=== PATIENT | male | born 1960 | race Caucasian/White ===

== ENCOUNTER 2020-06-29 10:12 | Inpatient (IN) | payer MEDICARE ==
[2020-06-29] VITALS (10 sets, daily range): BP systolic 82–122; BP diastolic 52–68
[~2020-06-29] VITALS: Ht 177.8 cm; Wt 90.0 kg
[~2020-06-29 10:12] MED LIST: BACTRIM DS1 TAB PO; DECADRON4 MG OR; LEXAPRO10 MG PO; LOVASTATIN40 MG PO; NEXIUM40 M1 PO; OXYCODONE HCL15 MG PO; PEPCID20 MG OR; ROXICODONE30 MG OR; TRICOR145 MG PO; TYLENOL # 31 TAB PO; VASERETIC1 TAB PO; XANAX0.25 MG OR; ZOLPIDEM10 M1 PO
--- NOTE | 2020-06-29 10:13 | NUR ---
PATIENT TO ROOM VIA WHEELCHAIR AND PHYSICIAN NOTIFIED OF PATIENT STATUS
[2020-06-29 10:48] LABS: HEMATOCRIT 41.8 % (39.0-50.0); HEMOGLOBIN 14.5 g/dl (14.0-18.0); MEAN CELL VOLUME 85.3 fL CALC (80.0-100.0); MEAN CORPUSCULAR HGB 29.6 pG CALC (26.0-32.0); MEAN CORPUSCULAR HGB CONC 34.7 g/dL CAL (32.0-36.0); NEUT# 4.69 thou/uL (1.82-7.42); RED BLOOD COUNT 4.9 mill/uL (4.70-6.10); RED CELL DISTRI WIDTH 14.3 % (11.5-15.5)
--- NOTE | 2020-06-29 10:55 | NUR ---
COVID SWAB COLLECTED, ISOLATION PRECAUTIONS INITIATED.
--- NOTE | 2020-06-29 10:57 | NUR ---
PATIENT REVIEWED PLAN OF ACRE. CALL FISHER IN REACH. FRIEND AT BEDSIDE
[2020-06-29 11:07] LABS: ALKALINE PHOSPHATASE 68 u/l (38-126); BUN 26 mg/dL (8-23); BUN/CREATININE RATIO 35 (12-20 (CALC)); CARBON DIOXIDE 27 mmol/l (22-30); CHLORIDE 97 mmol/l (95-108); CREATININE 0.8 mg/dL (0.7-1.3); GFR > 60 ML/MIN (>=60 (CALC)); GFR FOR AFR.AMER. > 60 ML/MIN (>=60 (CALC)); SGOT/AST 26 u/l (19-48); TOTAL PROTEIN 6.2 g/dL (6.3-8.2)
[2020-06-29 11:08] LABS: ACT PARTIAL THROMBO TIME 20.1 SECONDS (20.0-32.5); ALBUMIN 3.6 g/dL (3.2-5.0); ANION GAP 9 (6-22 (CALC)); BILIRUBIN, TOTAL 1.1 mg/dL (0.0-1.4); INTERNATIONAL NORMALIZED RATIO 0.9 RATIO (0.7-1.3); POTASSIUM 3.1 mmol/l (3.5-5.1); PROTHROMBIN TIME 9.4 SECONDS (9.0-12.5); SODIUM 130 mmol/l (137-146)
[2020-06-29 11:10] LABS: IMMATURE GRANULOCYTES 6.3 % (0.0-5.0)
--- NOTE | 2020-06-29 11:30 | NUR ---
CARDIZIEM GTT INITIATED AT 10MG/HR PER PROTOCOL. BP 172/110 HEART RATE 118
--- NOTE | 2020-06-29 11:40 | NUR ---
CARDIZEM GTT STOPPED, BP 74/51 HEART RATE 102, MD NOTIFIED.
--- NOTE | 2020-06-29 12:40 | NUR ---
PATIENT RESTING QUIETLY. DENIES PAIN. BROTHER AT BEDSIDE. CALL FISHER IN REACH.
--- NOTE | 2020-06-29 13:45 | NUR ---
RESTING QUIETLY ON STRETCHER, VISITOR AT BEDSIDE. DENIES NEEDS AT THIS TIME.
[2020-06-29 13:59] LABS: URINE BILIRUBIN - DIPSTICK NEGATIVE (NEGATIVE); URINE BLOOD DIPSTICK NEGATIVE (NEGATIVE); URINE COLOR YELLOW; URINE GLUCOSE - DIPSTICK NEGATIVE (NEGATIVE); URINE KETONE NEGATIVE (NEGATIVE); URINE LEUK ESTERASE NEGATIVE (NEGATIVE); URINE NITRITE - DIPSTICK NEGATIVE (Negative); URINE PROTEIN - DIPSTICK NEGATIVE (NEG-TRACE); URINE UROBILINOGEN - DIPSTICK 0.2 E.U./dL (0.2)
--- NOTE | 2020-06-29 16:04 | NUR ---
REPORT CALLED TO BETHANIE HERNANDEZ.
--- NOTE | 2020-06-29 16:20 | NUR ---
TO ICU VIA STRETCHER.
--- NOTE | 2020-06-29 17:00 | NUR ---
PT ARRIVES TO ICU 5 FROM THE ER, IS ALERT AND ORIENTED TO SELF, INTERACTIVE. PT WITH RECENT BRAIN CANCER AND CHEMOTHERAPY IS SLOW TO ANSWER AND OFTEN IS UNABLE TO ANSWER SIMPLE QUESTIONS. PT SEEN WEAK ALSO, PER TRANSFER TO BSC WITH TWO PERSON ASSIST. BP LOW, PT NOT SYMPTOMATIC, 84/60.
--- NOTE | 2020-06-29 18:45 | NUR ---
REPORT RECEIVED FROM BETHANIE HERNANDEZ. CARE ASSUMED.
--- NOTE | 2020-06-29 19:15 | NUR ---
PT RESTING IN BED AWAKE. PT IS ALERT AND ORIENTED X2. DOES NOT RECALL THE YEAR. REORIENTATION SUCCESSFUL. SHIFT ASSESSMENT COMPLETED AT THIS TIME. IV PATENT X2. [facility] WILL CONTINUE TO MONITOR.
--- NOTE | 2020-06-29 19:25 | NUR ---
PT NOTED ON WOODS RIDER TO BE SB 41. EKG PLACED
--- NOTE | 2020-06-29 20:00 | NUR ---
RT AT BEDSIDE FOR EKG. EKG DOES SHOW SR AT 95
--- NOTE | 2020-06-29 21:33 | NUR ---
PT RESTING IN BED WATCHING TV. RESP ARE EVEN AND UNLABORED. VSS ON MONITOR. CALL LIGHT IN REACH. WILL CONTINUE TO MONITOR.
--- NOTE | 2020-06-29 22:40 | NUR ---
PT REQUESTED SOMETHING TO HELP HIM SLEEP. SONATA ON JUL AND MEDICATED PT PER MD ORDER AND JUL. CALL LIGHT IN REACH. WILL CONTINUE TO MONITOR.
[2020-06-30] VITALS (15 sets, daily range): BP systolic 105–170; BP diastolic 59–91
--- NOTE | 2020-06-30 00:11 | NUR ---
pt resting in bed with eyes closed. resp are even and unlabored. no distress noted. call light in reach. will continue to monitor.
--- NOTE | 2020-06-30 00:21 | NUR ---
LAB AT BEDSIDE FOR MIDNIGHT TROPONIN.
--- NOTE | 2020-06-30 00:22 | NUR ---
PT NOTED ON MONITOR TO BE AFIB AT THIS TIME.
--- NOTE | 2020-06-30 01:56 | NUR ---
PT RESTING IN BED WITH EYES CLOSED. PT AWAKES PERIODICALLY AND SAYS HE IS RESTLESS. CALL [facility] IN REACH. WILL CONTINUE TO [facility].
--- NOTE | 2020-06-30 02:06 | NUR ---
RADAR AIR TRAFFIC CONTROLLER SHOWS SINUS RHYTHM AT THIS TIME.
--- NOTE | 2020-06-30 04:01 | NUR ---
TEMP 100.7 MEDICATED WITH TYLENOL PER JUL. PT ASKING WHY HE IS BEING KEPT IN THE HOSPITAL. EXPLAINED THAT HE HAD BEEN IN AFIB. PT THEN SAYS "WELL WHY DID SHE LIE TO ME" QUESTIONED PT WHAT HE WAS REFERRING TO. PT THEN WENT ON TO A NEW TOPIC. REORIENTATION UNSUCCESSFUL. [facility] WILL CONTINUE TO MONITOR.
--- NOTE | 2020-06-30 05:20 | NUR ---
LAB AT BEDSIDE FOR AM LAB DRAW
[2020-06-30 06:13] LABS: MEAN CELL VOLUME 85.1 fL CALC (80.0-100.0); MEAN CORPUSCULAR HGB 29.3 pG CALC (26.0-32.0); MEAN CORPUSCULAR HGB CONC 34.5 g/dL CAL (32.0-36.0); NEUT# 2.15 thou/uL (1.82-7.42); RED BLOOD COUNT 3.82 mill/uL (4.70-6.10); RED CELL DISTRI WIDTH 14.3 % (11.5-15.5)
[2020-06-30 06:17] LABS: ALKALINE PHOSPHATASE 44 u/l (38-126); ANION GAP 6 (6-22 (CALC)); BILIRUBIN, TOTAL 0.7 mg/dL (0.0-1.4); BUN 14 mg/dL (8-23); BUN/CREATININE RATIO 26 (12-20 (CALC)); CARBON DIOXIDE 23 mmol/l (22-30); CHLORIDE 106 mmol/l (95-108); CHOLESTEROL HDL RATIO 5.3 (<4.4 (CALC)); CREATININE 0.5 mg/dL (0.7-1.3); GFR > 60 ML/MIN (>=60 (CALC)); GFR FOR AFR.AMER. > 60 ML/MIN (>=60 (CALC)); HDL CHOLESTEROL 29 mg/dL (>=40); MAGNESIUM 1.5 mg/dL (1.6-2.3); SGOT/AST 25 u/l (19-48); SODIUM 131 mmol/l (137-146); TOTAL TRIGLYCERIDES 326 mg/dl (30-149); VLDL CHOLESTROL 65 mg/dl (4-45 (CALC))
[2020-06-30 06:21] LABS: TOTAL PROTEIN 4.2 g/dL (6.3-8.2)
--- NOTE | 2020-06-30 06:21 | NUR ---
PT ASSISTED TO BATHROOM. PT HAS STEADY GAIT.
[2020-06-30 06:22] LABS: ALBUMIN 2.3 g/dL (3.2-5.0); CALCULATED LDLCHOLESTEROL 60 mg/dL (62-129 (CALC)); TOTAL CHOLESTEROL 154 mg/dl (0-199)
[2020-06-30 06:50] LABS: HEMATOCRIT 32.5 % (39.0-50.0); HEMOGLOBIN 11.2 g/dl (14.0-18.0); IMMATURE GRANULOCYTES 8.8 % (0.0-5.0)
--- NOTE | 2020-06-30 07:22 | NUR ---
PT LAYING IN BED. A&O TO SELF AND PLACE, REORIENTATION NEEDED FOR CURRENT TIME. PT REPORTS TO BE FEELING "BETTER COMPARED TO YESTERDAY". CLEAR BREATH SOUNDS UPON AUSCULTATION. CURRENTLY SR ON MONITOR HR 82. ASSESSMENT COMPLETED. DISCUSSED POC. CALL LIGHT LEFT WITHIN REACH.
--- NOTE | 2020-06-30 09:21 | NUR ---
DR PRAKASH AT BEDSIDE DISCUSSING POC
--- NOTE | 2020-06-30 10:03 | NUR ---
PT EDUCATED ON FIRST TIME DOSE OF LOPRESSOR PO AND LEVEMIR. PT VERBALIZED UNDERSTANDING. FIRST DOSE ADMINISTERED.
--- NOTE | 2020-06-30 11:18 | NUR ---
PT SITTING IN BED WATCHING TV. NO NEEDS AT THIS TIME, CURRENTLY SR ON MONITOR. CALL LIGHT LEFT WITHIN REACH.
--- NOTE | 2020-06-30 14:47 | NUR ---
consent to obtain medical records signed and faxed to [facility] .
--- NOTE | 2020-06-30 16:02 | NUR ---
PT SLEEPING IN BED. NO DISTRESS NOTED. SR ON MONITOR. CALL LIGHT IN REACH.
--- NOTE | 2020-06-30 18:45 | NUR ---
REPORT RECEIVED FROM JOYCE HERNANDEZ. CARE ASSUMED.
--- NOTE | 2020-06-30 19:15 | NUR ---
PT RESTING IN BED AWAKE AND WATCHING TV. PT IS ALERT AND ORIENTED TO PERSON AND PLACE. WHEN REORIENTING ON DATE PT STATES "OH YEAH I FORGOT". SHIFT ASSESSMENT COMPLETED AT THIS TIME. IV PATENT X2. CALL [facility] IN REACH. WILL CONTINUE TO MONITOR.
--- NOTE | 2020-06-30 20:40 | NUR ---
PT MEDICATED WITH 2100 MEDS AND GIVEN PRN SONATA FOR SLEEP. CALL LIGHT IN REACH. WILL CONTINUE TO MONITOR.
--- NOTE | 2020-06-30 22:22 | NUR ---
PT RESTING IN BED WATCHING TV. RESP ARE EVEN AND UNLABORED. NO DISTRESS NTOED. CALL [facility] IN REACH. WILL CONTINUE TO MONITOR
[2020-07-01] VITALS (7 sets, daily range): BP systolic 119–161; BP diastolic 64–93
--- NOTE | 2020-07-01 | NUR ---
PT PIE MAKER MACHINE LIGHT THIS NURSE INTO ROOM. PT STATEES I JUST CANT GET MY TEETH TO STOP QUESTIONED IF HE MEANT IF HE WAS SHIVERING. PT STATES YES. TEMP CHECKED 98.6. MADE PT AWARE OF TEMP. PT THEN STATES NO I CANNOT GET MY FEET TO STOP MOVING. QUESTIONED PT IF HE MEANT HE HAD RESTLESS LEGS. PT STATES NO. PT THEN STATES ANASTACIA BEEN SITTING HERE TO LONG. OFERRED PT A RECLINER. PT AGREED. ASSSITED PT UP TO RECLINER AT BEDSIDE. PT THEN STATES I CAN'T BREATHE DOWN THERE. ATTEMPTED TO INQUIRE FURTHER. PT STATES MY FEET CANT BREATHE. OFFERED TO REMOVE SOCKS. PT STATES NO THATS NOT IT. EXPLAINED THAT I WAS NOT SURE WHAT HE NEEDED. PT THEN STATES I THINK I AM OK NOW. CALL LIGHT IN REACH. WILL CONTINUE TO MONITOR.
--- NOTE | 2020-07-01 02:29 | NUR ---
PT TRANSFERRED SELF BACK TO BED. CALL LIGHT IN [facility]. WILL CONTINUE TO MONITOR
--- NOTE | 2020-07-01 04:04 | NUR ---
PT RESTING IN BED AWAKE AND WATCHING TV. RESP ARE EVEN AND UNLABORED. NO DISTRESS NOTED. CALL LIGHT IN REACH. WILL CONTINUE TO MONTIOR.
--- NOTE | 2020-07-01 05:18 | NUR ---
LAB HERE FOR AM BLOOD DRAW. PT TOLERATED WELL. CALL LIGHT IN REACH. WILL CONTINUE TO MONTIOR.
[2020-07-01 06:09] LABS: HEMATOCRIT 36.3 % (39.0-50.0); HEMOGLOBIN 12.4 g/dl (14.0-18.0); MEAN CELL VOLUME 85.6 fL CALC (80.0-100.0); MEAN CORPUSCULAR HGB 29.2 pG CALC (26.0-32.0); MEAN CORPUSCULAR HGB CONC 34.2 g/dL CAL (32.0-36.0); RED BLOOD COUNT 4.24 mill/uL (4.70-6.10); RED CELL DISTRI WIDTH 14.4 % (11.5-15.5)
[2020-07-01 06:51] LABS: ALBUMIN 2.7 g/dL (3.2-5.0); ALKALINE PHOSPHATASE 49 u/l (38-126); ANION GAP 6 (6-22 (CALC)); BILIRUBIN, TOTAL 0.7 mg/dL (0.0-1.4); BUN 11 mg/dL (8-23); BUN/CREATININE RATIO 20 (12-20 (CALC)); CARBON DIOXIDE 27 mmol/l (22-30); CHLORIDE 103 mmol/l (95-108); CREATININE 0.5 mg/dL (0.7-1.3); GFR > 60 ML/MIN (>=60 (CALC)); GFR FOR AFR.AMER. > 60 ML/MIN (>=60 (CALC)); POTASSIUM 3.3 mmol/l (3.5-5.1); SGOT/AST 31 u/l (19-48); SODIUM 133 mmol/l (137-146); TOTAL PROTEIN 4.7 g/dL (6.3-8.2)
[2020-07-01 06:52] LABS: MAGNESIUM 1.9 mg/dL (1.6-2.3)
--- NOTE | 2020-07-01 06:54 | NUR ---
PT REPORT RECEIVED, PT RESTING QUIETLY ON STRETCHER. VITAL SIGNS STABLE.
--- NOTE | 2020-07-01 10:06 | NUR ---
WAITING FOR GABI TO RETURN CALL TO DR. MEDINA BEFORE DISCHARGING PT.
--- NOTE | 2020-07-01 10:15 | NUR ---
PT SITTING UP IN CHAIR, VITAL SIGNS STABLE, NO COMPLAINTS AT THIS TIME. ADVISED THAT WE ARE WAITING FOR PETALUMA TO SPEAK WITH DR. MEDINA
[2020-07-01] MEDS ORDERED: FENOFIBRATE40 MG PO (12:33)
[2020-07-01] MEDS ORDERED: OMEPRAZOLE DR40 MG PO (12:36)
[2020-07-01] MEDS ORDERED: CRESTOR20 MG PO (12:37)
[2020-07-01] MEDS ORDERED: TOPROL XL25 M1 PO (12:37)
[2020-07-01] MEDS ORDERED: MOBIC7.5 M1 PO (12:38)
[2020-07-01] MEDS ORDERED: TRAZODONE50 MG PO (12:38)
[2020-07-01] MEDS ORDERED: ZOFRAN4 MG/TAB PO (12:41)
[2020-07-01] MEDS ORDERED: BACLOFEN10 MG PO (12:42)
[2020-07-01] MEDS ORDERED: QUDEXY XR100 MG PO (12:43)
[2020-07-01] MEDS ORDERED: REPAGLINIDE2 MG PO (12:43)
[2020-07-01] MEDS ORDERED: ENALAPRIL20 MG PO (12:44)
[2020-07-01] MEDS ORDERED: PAROXETINE30 MG PO (12:45)
[2020-07-01] MEDS ORDERED: KEPPRA XR500 MG PO (12:45)
[2020-07-01] MEDS ORDERED: ZOLPIDEM5 M1 PO (12:45)
[2020-07-01] MEDS ORDERED: DEXAMETHASON1 MG PO (12:48)
[2020-07-01] MEDS ORDERED: JANUVIA100 MG PO (13:02)
[2020-07-01] MEDS ORDERED: ELIQUIS5 MG PO (13:09)
--- NOTE | 2020-07-01 13:18 | NUR ---
WAITING FOR PHARMACY TO VERIFY MEDICATIONS , PT SITTING UP IN CHAIR WATCHING TV, NO COMPLAINTS AT THIS TIME, VITAL SIGNS STABLE
--- NOTE | 2020-07-01 14:30 | NUR ---
PT TAKEN BY W/C TO FRONT [facility] WHERE BROTHER PICKED HIM UP, GOT UP FROM W/C AND WALKED TO CAR WITHOUT ANY PROBLEMS. PT DISCHARGED WITH INST. AND RX. PT VOICES UNDERSTANDING.
== END 2020-07-01 15:10 | disposition home or self-care (01) | DRG 309 ==
LOC: ED 10:12 → ED-I 15:10 → ED 15:19 → ICU 15:20
PROVIDERS: Nurse Practitioner; Student in an Organized Health Care Education/Training Program; ADMIT Internal Medicine; ATTEND Internal Medicine
DX: I48.91 Unspecified atrial fibrillation (principal); C71.9 Malignant neoplasm of brain, unspecified; I95.9 Hypotension, unspecified; E83.41 Hypermagnesemia; E11.65 Type 2 diabetes mellitus with hyperglycemia; I10 Essential (primary) hypertension; E78.5 Hyperlipidemia, unspecified; F17.200 Nicotine dependence, unspecified, uncomplicated; E87.5 Hyperkalemia; Z79.899 Other long term (current) drug therapy; Z20.822 Contact with and (suspected) exposure to COVID-19
CPT/HCPCS: J1650; J3475; Q9967

== ENCOUNTER 2020-11-14 08:44 | Emergency (ER) | payer MEDICARE ==
[~2020-11-14] VITALS: Ht 177.8 cm; Wt 82.0 kg
[~2020-11-14 08:44] MED LIST changes: +BACLOFEN10 MG PO; +CRESTOR20 MG PO; +DEXAMETHASON1 MG PO; +ELIQUIS5 MG PO; +ENALAPRIL20 MG PO; +FENOFIBRATE40 MG PO; +JANUVIA100 MG PO; +KEPPRA XR500 MG PO; +MOBIC7.5 M1 PO; +OMEPRAZOLE DR40 MG PO; +PAROXETINE30 MG PO; +QUDEXY XR100 MG PO; +REPAGLINIDE2 MG PO; +TOPROL XL25 M1 PO; +TRAZODONE50 MG PO; +ZOFRAN4 MG/TAB PO; +ZOLPIDEM5 M1 PO
[2020-11-14 09:29] LABS: HEMATOCRIT 39.2 % (39.0-50.0); HEMOGLOBIN 13.1 g/dl (14.0-18.0); IMMATURE GRANULOCYTES 2.8 % (0.0-5.0); MEAN CELL VOLUME 89.9 fL CALC (80.0-100.0); MEAN CORPUSCULAR HGB CONC 33.4 g/dL CAL (32.0-36.0); NEUT# 4.27 thou/uL (1.82-7.42); RED BLOOD COUNT 4.36 mill/uL (4.70-6.10); RED CELL DISTRI WIDTH 14.7 % (11.5-15.5)
[2020-11-14 09:44] LABS: ALKALINE PHOSPHATASE 33 u/l (38-126); ANION GAP 11 (6-22 (CALC)); BILIRUBIN, TOTAL 0.5 mg/dL (0.0-1.4); BUN 16 mg/dL (8-23); BUN/CREATININE RATIO 24 (12-20 (CALC)); CARBON DIOXIDE 27 mmol/l (22-30); CHLORIDE 104 mmol/l (95-108); CREATININE 0.7 mg/dL (0.7-1.3); GFR > 60 ML/MIN (>=60 (CALC)); GFR FOR AFR.AMER. > 60 ML/MIN (>=60 (CALC)); POTASSIUM 3.2 mmol/l (3.5-5.1); SGOT/AST 20 u/l (19-48); SODIUM 138 mmol/l (137-146)
[2020-11-14] MEDS ORDERED: LISINOPRIL10 MG PO (09:45)
[2020-11-14 09:46] LABS: ALBUMIN 3.8 g/dL (3.2-5.0); TOTAL PROTEIN 6.3 g/dL (6.3-8.2)
[2020-11-14] MEDS ORDERED: METFORMIN HCL1000 MG PO (09:46)
[2020-11-14] MEDS ORDERED: PROTONIX40 M2 PO (09:46)
[2020-11-14] MEDS ORDERED: LEVETIRACETAM500 M1 PO (09:47)
[2020-11-14] MEDS ORDERED: SULFAMETHOXAZOL1 TA1 (09:48)
[2020-11-14] MEDS ORDERED: PRAVASTATIN SOD10 MG PO (09:49)
[2020-11-14 11:40] VITALS: BP 139/77
== END 2020-11-14 11:50 | disposition home or self-care (01) ==
LOC: ED 08:44
PROVIDERS: Emergency Medicine
DX: R51.9 Headache, unspecified (principal); I10 Essential (primary) hypertension; E11.9 Type 2 diabetes mellitus without complications; Z85.841 Personal history of malignant neoplasm of brain; Z79.84 Long term (current) use of oral hypoglycemic drugs; Z86.73 Personal history of transient ischemic attack (TIA), and cerebral infarction without residual deficits

== ENCOUNTER 2020-12-11 07:52 | Observation (INO) | payer MEDICARE ==
[~2020-12-11] VITALS: Ht 177.8 cm; Wt 72.0 kg
[~2020-12-11 07:52] MED LIST changes: +LEVETIRACETAM500 M1 PO; +LISINOPRIL10 MG PO; +METFORMIN HCL1000 MG PO; +PRAVASTATIN SOD10 MG PO; +PROTONIX40 M2 PO; +SULFAMETHOXAZOL1 TA1
--- NOTE | 2020-12-11 07:55 | NUR ---
PT TO ROOM VIA WHEELCHIAR WITH BROTHER.
--- NOTE | 2020-12-11 08:30 | NUR ---
WOUND CARE PROVIDED TO RIGHT FA, PT TOLERATED WELL. DRESSING PLACED.
[2020-12-11 08:36] LABS: HEMATOCRIT 42.4 % (39.0-50.0); HEMOGLOBIN 13.9 g/dl (14.0-18.0); IMMATURE GRANULOCYTES 0.6 % (0.0-5.0); MEAN CORPUSCULAR HGB 29.8 pG CALC (26.0-32.0); MEAN CORPUSCULAR HGB CONC 32.8 g/dL CAL (32.0-36.0); NEUT# 4.2 thou/uL (1.82-7.42); RED BLOOD COUNT 4.66 mill/uL (4.70-6.10)
[2020-12-11 08:51] LABS: ALBUMIN 4.2 g/dL (3.2-5.0); ALKALINE PHOSPHATASE 41 u/l (38-126); ANION GAP 15 (6-22 (CALC)); BILIRUBIN, TOTAL 0.5 mg/dL (0.0-1.4); BUN 27 mg/dL (8-23); BUN/CREATININE RATIO 19 (12-20 (CALC)); CARBON DIOXIDE 24 mmol/l (22-30); CHLORIDE 102 mmol/l (95-108); CREATININE 1.4 mg/dL (0.7-1.3); GFR 52 ML/MIN (>=60 (CALC)); GFR FOR AFR.AMER. > 60 ML/MIN (>=60 (CALC)); POTASSIUM 2.8 mmol/l (3.5-5.1); SGOT/AST 22 u/l (19-48); SODIUM 138 mmol/l (137-146)
[2020-12-11 09:03] LABS: MYOGLOBIN 41 ng/mL (0 - 121)
[2020-12-11 09:07] LABS: URINE BLOOD DIPSTICK NEGATIVE (NEGATIVE); URINE COLOR YELLOW; URINE GLUCOSE - DIPSTICK NEGATIVE (NEGATIVE); URINE KETONE TRACE mg/dL (NEGATIVE); URINE LEUK ESTERASE NEGATIVE (NEGATIVE); URINE PH 5.5 (4.5-8.0); URINE PROTEIN - DIPSTICK 30 mg/dL (NEG-TRACE); URINE SPECIFIC GRAVITY >=1.030
[2020-12-11 09:08] LABS: URINE BILIRUBIN - DIPSTICK SMALL (NEGATIVE); URINE NITRITE - DIPSTICK NEGATIVE (Negative)
[2020-12-11 09:12] LABS: URINE RBC 0-2 RBC/hpf (0-5); URINE WBC 0-2 WBC/hpf (0-5)
[2020-12-11] MEDS ORDERED: D 10001000 UNIT PO (09:47)
--- NOTE | 2020-12-11 10:00 | NUR ---
PT RESTING ON STRETCHER IN NAD. RESP EVEN AND UNLABORED. SKIN WARM AND DRY. VERBALIZES NO NEEDS AT THIS TIME. CALL LIGHT WITHIN REACH.
--- NOTE | 2020-12-11 10:15 | NUR ---
PT AMBULATORY TO BR WA STEADY GAIT, REPORTS RELIEF FROM PAIN MEDICAITON BUT DOES COMPLAIN OF GENERALIZED PRESSURE
--- NOTE | 2020-12-11 11:18 | NUR ---
PT RESTING ON STRETCHER WITH EYES OPEN. RESP EVEN AND UNLABORED. SKIN WARM AND DRY. POTASSIUM IVF RUNNING W/O DIFF. PT TOLERATING WELL.
--- NOTE | 2020-12-11 11:21 | NUR ---
RECIEVED REPORT FROM MARY SHEPARD
--- NOTE | 2020-12-11 11:22 | NUR ---
REPORT PROVIDED TO UGO COSTA.
--- NOTE | 2020-12-11 11:35 | NUR ---
Admission Note Report Given to: UGO RN Transported by: Wheelchair X Stretcher Transported with: X Nurse Transporter X Patent IV O2 X Psychosocial Rehabilitation Counselor Location: ICU X MS2 PT TRANSPORTED TO FLOOR IN STABLE CONDITION WITH TELE MONITOR IN PLACE.
--- NOTE | 2020-12-11 11:38 | NUR ---
PT ARRIVED TO [facility] ROOM 260. PT IS A/O X2 AND FORGETFUL.PT POOR HISTORIAN.ASSESSMENT AND VITALS COMPLETED. BP 106/76, HR 77, O2 97% ON ROOM AIR. RESPIRATIONS ARE EVEN AND UNLABORED WITH NO DISTRESS NOTED. LUNG SOUNDS ARE CLEAR. HEART RHYTHM IS NORMAL WITH TELE IN PLACE, SR PER ER MONITORING. BOWEL SOUNDS ARE ACTIVE. RADIAL AND PEDAL PULSES STRONG. #18G LAC INFUSING WITH IVF PER ORDER, SITE REMAINS HEALTHY AND PATENT. SKIN TEAR NOTED TO RIGHT FOREARM, DRESSING REMAINS CDI AT THIS TIME. RIGHT SIDED WEAKNESS NOTED FROM PRIOR STROKE. PT DENIES OF ANY PAINS OR DISCOMFORTS AT THIS TIME.ALLERGIES NOTED, ALLERGY BAND AND FALL RISK BAND APPLIED. PT ORIENTED TO ROOM AND CALL LIGHT SYSTEM. ALL SAFETY PREACUTIONS ARE IN PLACE WITH CALL LIGHT IN REACH. BED ALARM ACTIVATED. WILL CONTINUE TO MONITOR.
[2020-12-11 11:57] VITALS: BP 106/76
--- NOTE | 2020-12-11 13:35 | NUR ---
DIGESTER OPERATOR HELPER NOTIFIED BY DR DOLAN TO COMPLETE EKG THAT WAS ORDERED AND FAX COPY. RT CALLED.
--- NOTE | 2020-12-11 14:01 | NUR ---
LARGE LIQUID BM NOTED. UNABLE TO OBTAIN SAMPLE AT THIS TIME.
--- NOTE | 2020-12-11 15:02 | NUR ---
DR FAITH NOTIFIED OF REPEAT LACTIC.VERBAL ORDERS FOR IVF AT 125 ML/HR AND ROCEPHIN 1 GM IV DAILY. ORDER SENT TO PHARMACY.
--- NOTE | 2020-12-11 15:14 | NUR ---
PT RESTING IN SEMI FOWLERS POSITION WATCHING TV. RESPIRATIONS ARE EVEN AND UNLABROED WITH NO DISRTESS NOTED. #18G LAC INFUSING WITH IVF PER ORDER, SITE REMAINS HEALTHY AND PATENT. PT COMPLAINS OF 8/10 GENERALIZED PAIN. TYLENOL ADMINISTERED. PT DENIES OF ANY ADDITIONAL NEEDS AT THIS TIME. ALL SAFETY PRECAUTIONS ARE IN PLACE WITH CALL LIGHT INR EACH. WILL CONTINUE TO MONITOR.
[2020-12-11 16:00] VITALS: BP 96/62
--- NOTE | 2020-12-11 17:38 | NUR ---
SIDE RAILS PADDED DUE TO PT BEING ON KEPRRA.
[2020-12-11 18:18] VITALS: BP 104/67
--- NOTE | 2020-12-11 19:30 | NUR ---
PATIENT RESTING IN BED AT THIS TIME-AWAKE ALERT AND ONLY ABLE TO TELL ME HIS NAME AND BIRTHDATE. PATIENT ATE ONLY APPROX 1/3 OF DINNER. TRAY REMOVED. PATIENT WITH NO COMPLAINTS AT THIS TIME. TELE MONITOR IN PLACE. IVF NS PATENT AND INFUSING VIA LAC SITE AT 125CC/HR. SITE IS HEALTHY AT THIS TIME. DRESSING TO RIGHT FOREARM INTACT-CLEAN AND DRY. SIDERAILS PADDED FOR SEIZURE PRECAUTIONS. SAFETY PRECAUTIONS REINFORCED. BED ALARM IN PLACE FOR PATIENT SAFETY. CALL LIGHT IN REACH. WILL CONT TO MONITOR.
[2020-12-12] VITALS (7 sets, daily range): BP systolic 121–155; BP diastolic 70–93
--- NOTE | 2020-12-12 02:38 | NUR ---
PATIENT RESTING IN BED AT THIS TIME WITH EYES CLOSED. RESPS ARE EVEN AND UNLABORED. TELE MONITOR IN PLACE.IVF PATENT AND INFUSING VIA LAC SITE AT 125CC/HR. CALL LIGHT IN REACH. WILL CONT TO MONITOR.
--- NOTE | 2020-12-12 04:23 | NUR ---
PATIENT RESTING IN BED-VOIDED 250CC OF PAXTON URINE IN URINAL. TELE MONITOR REMAINS IN PLACE. IVF PATENT AND INFUSING VIA LAC AT 125CC/HR. DRESSING TO RIGHT FOREARM REMAINS CDI. PATIENT REMAINS ORIENTED TO PERSON ONLY AT THIS TIME. BED ALARM IN PLACE FOR PATIENT SAFETY. CALL LIGHT IN REACH. WILL CONT TO MONITOR.
[2020-12-12 05:41] LABS: ALKALINE PHOSPHATASE 30 u/l (38-126); BUN 20 mg/dL (8-23); BUN/CREATININE RATIO 21 (12-20 (CALC)); CARBON DIOXIDE 20 mmol/l (22-30); CHLORIDE 114 mmol/l (95-108); GFR > 60 ML/MIN (>=60 (CALC)); GFR FOR AFR.AMER. > 60 ML/MIN (>=60 (CALC)); IMMATURE GRANULOCYTES 1.2 % (0.0-5.0); MEAN CELL VOLUME 93.1 fL CALC (80.0-100.0); MEAN CORPUSCULAR HGB 30.6 pG CALC (26.0-32.0); MEAN CORPUSCULAR HGB CONC 32.8 g/dL CAL (32.0-36.0); NEUT# 1.25 thou/uL (1.82-7.42); RED BLOOD COUNT 3.6 mill/uL (4.70-6.10); RED CELL DISTRI WIDTH 13.9 % (11.5-15.5); SGOT/AST 16 u/l (19-48); SODIUM 138 mmol/l (137-146)
[2020-12-12 05:42] LABS: ALBUMIN 2.6 g/dL (3.2-5.0); ANION GAP 8 (6-22 (CALC)); BILIRUBIN, TOTAL 0.2 mg/dL (0.0-1.4); POTASSIUM 3.7 mmol/l (3.5-5.1); TOTAL PROTEIN 4.8 g/dL (6.3-8.2)
[2020-12-12 05:45] LABS: HEMATOCRIT 33.5 % (39.0-50.0)
--- NOTE | 2020-12-12 07:00 | NUR ---
RECIEVED REPORT FROM MARY IVAN
--- NOTE | 2020-12-12 08:32 | NUR ---
PT RESTING IN SEMI FOWLERS POSITION. PT IS A/O X1. ASSESSMENT AND VITALS COMLPETED. BP 155/93, HR 70, O2 99% ON ROOM AIR. REPIRATIONS ARE EVEN AND UNLABORED WITH NO DISTRESS NOTED. LUNG SOUNDS ARE DIMINISHED. BOWEL SOUNDS ARE ACTIVE. RADIAL AND PEDAL PULSES STRONG. RIGHT SIDED WEAKNESS NOTED FROM PREVIOUS STROKE. SLIGHT GIS TECHNICIAN DIFFERENCE. #18G LAC INFUSING WITH IVF PER ORDER, SITE REMAINS HALTHY AND PATENT. PT DENEIS OF ANY PAINS. ALL SAFETY PRECAUTIONS ARE IN PLACE WITH CALL LIGHT IN REACH. BED ALARM ACTIVATED. ALL SAFETY PRECAUTIONS ARE IN PLACE WITH CALL LIGHT IN REACH. WILL CONTINUE TO MONITOR.
--- NOTE | 2020-12-12 09:20 | NUR ---
DR FAITH AT BEDSIDE
--- NOTE | 2020-12-12 12:25 | NUR ---
BRIDGE INSTRUCTOR SPOKE WITH BROTHER. WRITTER INFORMED THAT PT LIVES ON HIS OWN PROPERTY, IN A BUILDING WITH NO RUNNING WATER. BROTHER STAY IN TENT ON PROPERTY WELL. BROTHER STATES HES BEEN WANTING PT TO GO LIVE WITH SISTER BUT HE REFUSES. BRIDGE INSTRUCTOR INFORMED THAT PT HAD LIVED WITH HIS BOSS FOR A LITTLE BUT THEN RETURNED TO PROPERTY. CM CONSULT PLACED.
--- NOTE | 2020-12-12 12:28 | NUR ---
PT RESTING IN SEMI FOWLERS POSITION.RESPIRATIONS ARE EVEN AND UNLABORED WITH NO DSIRTESS NOTED. #18G LAC INFUSING WITH IVF PER ORDER, SITE REMAINS HEALTHY ADN PATENT. PT REQUEST TYLENOL FOR 6/10 HEADACHE. PT TO BE MEDICATED. PT DENIES OF ANY ADDITIONAL NEEDS. ALL SAFETY PRECAUTIONS ARE IN PLACE WITH CALL KLIGHT INR EACH. WILL CONTINUE TO MONITOR.
--- NOTE | 2020-12-12 12:57 | NUR ---
PER AKIL, PT CONSENTS TO PNEUMONIA VAX. PT IS CANDIDATE FOR PNEUMOVAX. ENTERING TO BE GIVEN TOMORROW AM
--- NOTE | 2020-12-12 14:00 | NUR ---
BROTHER AT BEDSIDE
--- NOTE | 2020-12-12 15:51 | NUR ---
PT RESTING IN SEMI FOWLERS POSITION. REPSIRATIONS ARE EVEN AND UNLABORED WITH NO DISRTESS NOTED. #18G LAC INFUSING WITH IVF PER ORDER, SITE REMAINS HEALTHY AND PATENT. TELE MONITORING IN PLACE. SIDE RAILS REMAINS PADDED. PT DENIES OF ANY PAINS OR DISCOMFORTS AT THIS TIME. ALL SAFETY PRECAUTIONS ARE IN PLACE WITH CALL LIGHT IN REACH. WILL CONTINUE TO MONITOR.
--- NOTE | 2020-12-12 20:00 | NUR ---
PATIENT RESTING IN THE BED AT THIS TIME-AWAKE ALERT AND ORIENTED TO PERSON ONLE. PATIENT WITH SOME EXPRESSIVE APHASIA-WORD FINDING DIFFICULTY. PATIENT WITH HISTORY OF BRAIN CA AND BRAIN SURGERY. PATIENT ALSO WITH RIGHT SIDED WEAKNESS. PATIENT DENIES ANY PAIN.ASSISTED OOB TO THE BSC FOR SMALL SOFT BROWN BM WITH SMALL AMT OF URINE. BACK IN BED AT THIS TIME. TELEE MONITOR IN PLACE-LAST READING WAS SR-74 WITH PAC'S. IVF NS PATENT AND INFUSING VIA LAC AT 125CC/HR. SITE REMAINS HEALTHY AT THIS TIME. LUNGS ARE CLEAR. ABD SOFT WITH BS+. BED ALARM IN PLACE FOR PATIENT SAFETY. CALL LIGHT IN REACH. WILL CONT TO MONITOR.
--- NOTE | 2020-12-13 | NUR ---
PATIENT IS AWAKE RESTING IN BED WATCHING TV AT THIS TIME. PATIENT WITH NO COMPLAINTS. TELE MONITOR IN PLACE. IVF PATENT AND INFUSING VIA LAC SITE AT 125CC/HR. SITE REMAINS HEALTHY AT THIS TIME. BED ALARM IN PLACE FOR PATIENT SAFETY AT THIS TIME. CALL LIGHT IN REACH. WILL CONT TO MONITOR.
[2020-12-13 03:30] VITALS: BP 139/81
--- NOTE | 2020-12-13 04:16 | NUR ---
PATIENT RESTING IN BED AT THIS TIME-APPEARS SLEEPING WITH EYES CLOSED. RESPS ARE EVEN AND UNLABORED. TELE MONITOR IN PLACE. IVF PATENT AND INFUSING VIA LAC SITE AT 125CC/HR. SITE REMAINS HEALTHY AT THIS TIME. BED ALARM IN PLACE FOR PATIENT SAFETY. CALL LIGHT IN REACH. WILL CONT TO MONITOR.
--- NOTE | 2020-12-13 05:47 | NUR ---
PATIENT ASSISTED TO THE BR-PATIENT HAD BM AND VOIDED AND THEN ASSISTED BACK TO THE BED. TELE MONITOR IN PLACE. IVF NS PATENT AND INFUSING VIA LAC SITE. BED ALARM IN PLACE FOR PATIENT SAFETY. CALL LIGHT IN REACH. WILL CONT TO MONITOR.
[2020-12-13 07:35] VITALS: BP 149/91
--- NOTE | 2020-12-13 07:35 | NUR ---
PT LAYING IN BED. A&O. PT ABLE TO STATE NAME, AND LOCATION, REORIENTED PT TO CURRENT TIME. PAST HX OF STROKE, PT EXHIBITING SOME EXPRESSIVE APHASIA. PT ABLE TO FOLLOW COMMANDS. RT SIDED WEAKNESS DUE TO STROKE, BUT PT ABLE TO LIFT ARM AND LEG WITH NO DIFFICULT. MODERATE HAND ESCAPE WHEEL TOOTH CUTTER BILATERALLY. CLEAR BREATH SOUNDS UPON AUSCULTATION. ACTIVE BOWEL SOUNDS X4 QUADRANTS. NO EDEMA NOTED. #20 LAC WITH NS INFUSING PER MAR ORDER. COMPUTATIONAL LINGUIST IN PLACE CURRENTLY ST 60'S. DRESSING IN PLACE TO RFA, CDI. NO PAIN REPORTED AT THIS TIME. ASSESSMENT COMPLETED. CALL LIGHT PLACED WITHIN REACH.
[2020-12-13 10:03] LABS: HEMATOCRIT 33.7 % (39.0-50.0); HEMOGLOBIN 11.3 g/dl (14.0-18.0); IMMATURE GRANULOCYTES 0.9 % (0.0-5.0); MEAN CELL VOLUME 90.8 fL CALC (80.0-100.0); MEAN CORPUSCULAR HGB 30.5 pG CALC (26.0-32.0); MEAN CORPUSCULAR HGB CONC 33.5 g/dL CAL (32.0-36.0); NEUT# 2.32 thou/uL (1.82-7.42); RED BLOOD COUNT 3.71 mill/uL (4.70-6.10); RED CELL DISTRI WIDTH 13.7 % (11.5-15.5)
[2020-12-13 10:11] LABS: ANION GAP 9 (6-22 (CALC)); BUN 11 mg/dL (8-23); BUN/CREATININE RATIO 18 (12-20 (CALC)); CARBON DIOXIDE 20 mmol/l (22-30); CHLORIDE 114 mmol/l (95-108); CREATININE 0.6 mg/dL (0.7-1.3); GFR > 60 ML/MIN (>=60 (CALC)); GFR FOR AFR.AMER. > 60 ML/MIN (>=60 (CALC)); POTASSIUM 3.5 mmol/l (3.5-5.1); SODIUM 139 mmol/l (137-146)
--- NOTE | 2020-12-13 10:30 | NUR ---
DR HENRY AND Genesis PATTERSON APRN AT BEDSIDE DISCUSSING POC
[2020-12-13 12:00] VITALS: BP 140/93
--- NOTE | 2020-12-13 12:00 | NUR ---
PT LAYING IN BED. NO DISTRESS NOTED. CALL LIGHT WITHIN REACH.
--- NOTE | 2020-12-13 16:15 | NUR ---
PT LAYING IN BED. NO DISTRESS NOTED. NO OTHER NEEDS AT THIS TIME. BED ALARM IN PLACE FOR SAFETY. CALL LIGHT WITHIN REACH. DRESSING CHANGED BY Cristobal MARIE LPN.
[2020-12-13 18:42] VITALS: BP 131/87
[2020-12-13 19:00] VITALS: BP 148/92
--- NOTE | 2020-12-13 20:45 | NUR ---
PATIENT WATCHING TV, RESTING COMFORTABLY. ASSESMENT COMPLETED AT THIS TIME. LUNGS CLEAR BILATERALLY, NORMAL HEART SOUNDS, ACTIVE BOWEL SOUNDS. PATIENT HAS A #18 G INFUSING IN THE LEFT AC. PATIENT LOOKING FOR HIS CELLPHONE, OBSERVED WALKING, WEAKNESS NOTED TO RIGHT SIDE OF BODY REALTED TO PREVIOUS STROKE, SHUFFLING GAIT. DRESSING INTACT ON RIGHT ARM. PATIENT REASSURED PHONE WOULD BE FOUND. RE ORIENTED TO CALL LIGHT USE AND ENCOURAGED TO CALL. BED ALARM REACTIVATED.
--- NOTE | 2020-12-13 21:13 | NUR ---
MEDICATIONS ADMINISTERED AT THIS TIME, SEE EMAR.
--- NOTE | 2020-12-13 23:30 | NUR ---
PATIENT RESTING COMFORTABLY, HAS REQUESTED WRITTER TO LOOK FOR HIS PHONE AGAIN. PATIENT FOUND LYING ON OP OF PHONE.
[2020-12-14 04:00] VITALS: BP 152/91
--- NOTE | 2020-12-14 04:17 | NUR ---
PATIENT UP TO THE RESTROOM AT THIS TIME
[2020-12-14 05:16] LABS: HEMATOCRIT 34.8 % (39.0-50.0); HEMOGLOBIN 11.5 g/dl (14.0-18.0); MEAN CELL VOLUME 91.3 fL CALC (80.0-100.0); MEAN CORPUSCULAR HGB 30.2 pG CALC (26.0-32.0); RED BLOOD COUNT 3.81 mill/uL (4.70-6.10); RED CELL DISTRI WIDTH 13.8 % (11.5-15.5)
[2020-12-14 05:58] LABS: ALBUMIN 2.7 g/dL (3.2-5.0); ALKALINE PHOSPHATASE 35 u/l (38-126); ANION GAP 9 (6-22 (CALC)); BILIRUBIN, TOTAL 0.2 mg/dL (0.0-1.4); BUN 8 mg/dL (8-23); BUN/CREATININE RATIO 12 (12-20 (CALC)); CARBON DIOXIDE 21 mmol/l (22-30); CHLORIDE 113 mmol/l (95-108); CREATININE 0.6 mg/dL (0.7-1.3); GFR > 60 ML/MIN (>=60 (CALC)); GFR FOR AFR.AMER. > 60 ML/MIN (>=60 (CALC)); POTASSIUM 3.4 mmol/l (3.5-5.1); SGOT/AST 20 u/l (19-48); SODIUM 139 mmol/l (137-146); TOTAL PROTEIN 4.8 g/dL (6.3-8.2)
--- NOTE | 2020-12-14 06:45 | NUR ---
PATIENT ACCUCHECK WAS 78,NURSE NOTIFIED.
--- NOTE | 2020-12-14 07:00 | NUR ---
REPORT REC FROM Genesis BRUNER RN
[2020-12-14 09:00] VITALS: BP 133/85
--- NOTE | 2020-12-14 09:00 | NUR ---
PT SITTING IN BED. A&O TO SELF AND PLACE, REORIENTATION NEEDED. PT DENIES ANY PAIN AT THIS TIME. CLEAR BREATH SOUNDS. ACTIVE BOWEL SOUNDS X4 QUADRANTS. BM THIS MORNING. RFA DRESSING CDI. NO OTHER NEEDS AT THIS TIME. PT TOLERATING PO MEDICATIONS FINE, K GIVEN WITH CHOCOLATE PUDDING. ASSESSMENT COMPLETED AT THIS TIME. CALL LIGHT WITHIN REACH. BED ALARM PLACED FOR SAFETY.
[2020-12-14 09:08] VITALS: BP 133/85
--- NOTE | 2020-12-14 09:49 | NUR ---
DR HENRY AND Sadie BECKER APRN AT BEDSIDE DISCUSSING POC
--- NOTE | 2020-12-14 10:23 | NUR ---
Pt seen this am for treatment. AROM x 4 extremities in sitting 2x10 reps. Sit to and from stand with min assist for RUE placement and need assist for initial balance. Gait with RW with CGA and assist for 30', with cleance of R foot but small step on R. Without walker, CGA/Min assist and step length decreased on BLE, narrow FREDRICK. Pt moved sit to and from supine with min assist, pt laid on RUE and need verbal/physical cues to correct. Pt wanted to return to bed and was left with callbell/phone in reach and bedside tray in place. Gait belt and non skid socks in place.
--- NOTE | 2020-12-14 11:46 | NUR ---
SPEECH THERAPY AT BEDSIDE
--- NOTE | 2020-12-14 13:30 | NUR ---
Pt received upright in bed. Pt on room air. He is alert. Pt with difficulties expressing himself 2/2 expressive aphasia. Pt agreeable to complete cognitive-linguistic assessment to further determine rehabilitation goals. Pt participated in the Bedside Western Aphasia Battery (WAB-R). Scores listed below: Spontaneous Speech: Content - 2/10 Spontaneous Speech: Fluency - 3/10 Auditory Verbal Comprehension: Yes/no Questions - 7/10 Sequential Commands: 0/10 Repetition: 6.6/10 Object Namin.5/10 Bedside Aphasia Score: 36.83/100 indicating severe deficits. Pt's areas of strength include his abillity to answer yes/no questions, repeat words, and short phrases. Pt would benefit from rehabilitation on discharge. Discussed with patient and MD.
--- NOTE | 2020-12-14 14:21 | NUR ---
Discharge instructions given to brother and pt. Patient verbalizes understanding of same. Discharged in stable condition via wheelchair to R with staff. All belongings sent with pt.
--- NOTE | 2020-12-14 15:15 | NUR ---
REPORT GIVEN TO R
== END 2020-12-14 14:21 ==
LOC: ED 07:52 → ED-I 08:17 → ED 10:14 → MS2 10:15
PROVIDERS: Emergency Medicine; Nurse Practitioner Family; Physician Assistant; ADMIT Internal Medicine; ATTEND Internal Medicine
PROC: 3E0234Z Introduction of Serum, Toxoid and Vaccine into Muscle, Percutaneous Approach (ICD-10-PCS; principal; 2020-12-13)
DX: E87.6 Hypokalemia (principal); E86.0 Dehydration; R19.7 Diarrhea, unspecified; I10 Essential (primary) hypertension; E11.649 Type 2 diabetes mellitus with hypoglycemia without coma; I69.351 Hemiplegia and hemiparesis following cerebral infarction affecting right dominant side; E78.5 Hyperlipidemia, unspecified; R47.89 Other speech disturbances; S50.811A Abrasion of right forearm, initial encounter; F03.90 Unspecified dementia, unspecified severity, without behavioral disturbance, psychotic disturbance, mood disturbance, and anxiety; X58.XXXA Exposure to other specified factors, initial encounter; Z85.841 Personal history of malignant neoplasm of brain; Z79.84 Long term (current) use of oral hypoglycemic drugs; Z20.822 Contact with and (suspected) exposure to COVID-19; Z23 Encounter for immunization
CPT/HCPCS: G0378

== ENCOUNTER 2020-12-30 15:02 | Emergency (ER) | payer MEDICARE ==
[~2020-12-30 15:02] MED LIST changes: +D 10001000 UNIT PO
[2020-12-30 17:16] LABS: HEMATOCRIT 40.5 % (39.0-50.0); HEMOGLOBIN 13.2 g/dl (14.0-18.0); IMMATURE GRANULOCYTES 0.5 % (0.0-5.0); MEAN CELL VOLUME 93.1 fL CALC (80.0-100.0); MEAN CORPUSCULAR HGB 30.3 pG CALC (26.0-32.0); MEAN CORPUSCULAR HGB CONC 32.6 g/dL CAL (32.0-36.0); NEUT# 3.53 thou/uL (1.82-7.42); RED BLOOD COUNT 4.35 mill/uL (4.70-6.10); RED CELL DISTRI WIDTH 14.3 % (11.5-15.5)
[2020-12-30 17:18] LABS: ALKALINE PHOSPHATASE 39 u/l (38-126); ANION GAP 15 (6-22 (CALC)); BUN 9 mg/dL (8-23); BUN/CREATININE RATIO 11 (12-20 (CALC)); CARBON DIOXIDE 21 mmol/l (22-30); CHLORIDE 106 mmol/l (95-108); CREATININE 0.8 mg/dL (0.7-1.3); GFR > 60 ML/MIN (>=60 (CALC)); GFR FOR AFR.AMER. > 60 ML/MIN (>=60 (CALC)); LIPASE 580 u/l (23-300); POTASSIUM 3.7 mmol/l (3.5-5.1); SGOT/AST 27 u/l (19-48); SODIUM 138 mmol/l (137-146)
[2020-12-30 17:25] LABS: ALBUMIN 3.9 g/dL (3.2-5.0); BILIRUBIN, TOTAL 0.6 mg/dL (0.0-1.4); TOTAL PROTEIN 6.2 g/dL (6.3-8.2)
[2020-12-30 18:02] LABS: ACT PARTIAL THROMBO TIME 26.3 SECONDS (20.0-32.5); INTERNATIONAL NORMALIZED RATIO 1.1 RATIO (0.7-1.3); PROTHROMBIN TIME 11.5 SECONDS (9.0-12.5)
[2020-12-30 18:45] VITALS: BP 108/66
== END 2020-12-30 18:45 ==
LOC: ED 15:02
DX: S50.811A Abrasion of right forearm, initial encounter (principal); I10 Essential (primary) hypertension; E11.9 Type 2 diabetes mellitus without complications; I48.91 Unspecified atrial fibrillation; W19.XXXA Unspecified fall, initial encounter; Y92.238 Other place in hospital as the place of occurrence of the external cause; Z86.73 Personal history of transient ischemic attack (TIA), and cerebral infarction without residual deficits; Z85.841 Personal history of malignant neoplasm of brain; Z79.84 Long term (current) use of oral hypoglycemic drugs